=== PATIENT | male | born 2000 | race Caucasian/White ===

== ENCOUNTER 2024-03-17 15:46 | Emergency (ER) | payer OTHER ==
[2024-03-17] MEDS ORDERED: IBUPROFEN 600 MG TABLET (FP) PO ONE (17:11)
[2024-03-17] MEDS: IBUPROFEN 600 MG TABLET (FP) PO ONE (17:19)
== END 2024-03-17 17:23 | disposition home or self-care (01) ==
LOC: FER 15:46
DX: R07.89 Other chest pain (principal); R00.1 Bradycardia, unspecified
CPT/HCPCS: 85379; 93005; 99283-25